=== PATIENT | female | born 1975 | race Hispanic/Latino ===

== ENCOUNTER 2024-06-11 19:38 | Observation (INO) | payer BC ==
[2024-06-11] MEDS ORDERED: Mag-Al 1200 mg/1200 mg/30 ML UDCUP ONE (21:07)
[2024-06-11] MEDS ORDERED: Lidocaine Viscous Sol 2% 15 ml UD Cup ONE (21:07)
[2024-06-11] MEDS ORDERED: Ketorolac Tromethamine 30 MG (1 mL) VIAL ONE (21:07)
[2024-06-11] MEDS ORDERED: Ondansetron PF 4 MG/2 ML Vial ONE (21:07)
[2024-06-11] MEDS ORDERED: Famotidine/PF 20 mg/2ml Vial ONE (21:08)
[2024-06-11 21:46] LABS: #Basophils 0.02 10x3/uL (0.0-0.2); #Eosinophils 0.06 10x3/uL (0.0-0.5); #Monocytes 0.64 10x3/uL (0.0-1.1); #Neutrophils 4.89 10x3/uL (1.5-8.4); %Basophils 0.3 % (0.0-2.0); %Eosinophils 0.8 % (0.0-6.0); %Lymphocytes 24.4 % (18.0-47.0); %Monocytes 8.6 % (0.0-10.0); %Neutrophils 65.8 % (40.0-75.0); Hematocrit 34.2 % (34.9-44.5); Mean Corpuscular HGB CONC 35.1 g/dL (32.0-36.0); Mean Corpuscular Hemoglobin 28.2 pg (27.0-33.0); Mean Corpuscular Volume 80.3 fL (81.6-98.3); Mean Platelet Volume 11.1 fL (7.4-10.4); Platelet Count 208 10x3/uL (150-450); RBC Distribution Width 13.5 % (11.5-14.5); Red Blood Cell (RBC) Count 4.26 10x6/uL (3.90-5.03); White Blood Cell (WBC) Count 7.4 10x3/uL (3.5-10.5)
[2024-06-11 21:49] LABS: Bilirubin Neg (Negative); Blood, Urine Negative (Negative); Clarity Cloudy (Clear); Glucose, Urine (Dipstick) Normal (Negative); Ketone, Urine Negative (Negative); Leukocyte Negative (Negative); Nitrite Negative (Negative); Protein, Urine (Dipstick) 15 mg/dl (Neg-Trace); Urobilinogen Normal mg/dL (Less than 2)
[2024-06-11 22:04] LABS: ALT (SGPT) 32 U/L (8-55); AST (SGOT) 18 U/L (5-34); Albumin 3.8 g/dL (3.5-5.0); Alkaline Phosphatase 116 U/L (40-110); Anion Gap 16 mmol/L (10-20); BUN (Urea Nitrogen) 14 mg/dL (9.8-20.1); Bilirubin, Total 1.1 mg/dL (0.2-1.2); Calc. Creatinine Clearance 0 mL/min (70-130); Calcium 11.3 mg/dL (7.8-10.44); Carbon Dioxide 29 mmol/L (22-29); Chloride 105 mmol/L (98-107); Estimated GFR 111; Globulin 2.7 g/dL (2.4-3.5); Glucose 101 mg/dL (70-105); Lipase 26 U/L (8-78); Magnesium 1.6 mg/dL (1.6-2.6); Potassium 2.9 mmol/L (3.5-5.1); Protein, Total 6.5 g/dL (6.0-8.3); Sodium 147 mmol/L (136-145)
[2024-06-11 22:08] LABS: CAUTI Indications for Culture Pelvic or flank pain; WBC/HPF 0-3 HPF (0-3)
[2024-06-11 22:09] LABS: RBC/HPF 0-3 HPF (0-3); Squamous Epithelial 0-3 HPF (0-3)
[2024-06-11 22:10] LABS: Bacteria/HPF 1+ HPF (None Seen)
[2024-06-11 22:10] LABS: Troponin I 0.015 ng/mL (< 0.028)
[2024-06-11 22:11] LABS: Urine Culture Reflex No No
[2024-06-11] MEDS ORDERED: Potassium Bicarbonate/Cit Ac 20 MEQ TAB ONE ×2 (22:21→22:22)
[2024-06-11] MEDS ORDERED: Zolpidem Tartrate 5 MG TAB PO PRN (23:41)
[2024-06-11] MEDS ORDERED: Senokot S 8.6-50 MG TAB PO PRN (23:41)
[2024-06-11] MEDS ORDERED: Acetaminophen 325 MG TAB PO PRN (23:41)
[2024-06-11] MEDS ORDERED: Ondansetron PF 4 MG/2 ML Vial IVP PRN (23:41)
[2024-06-11 23:49] LABS: Amphetamine Not Detected (NotDetected); Barbiturates Screen Not Detected (NotDetected); Benzodiazepine Screen Not Detected (NotDetected); Cocaine Metabolite Screen Not Detected (NotDetected); Methadone Not Detected (NotDetected); Methamphetamine Not Detected (NotDetected); Opiate Screen Not Detected (NotDetected); Oxycodone Screen Not Detected (NotDetected); Phencyclidine (PCP) Not Detected (NotDetected); THC/Cannabinoid Screen Not Detected (NotDetected); Tricyclic Screen Not Detected (NotDetected)
[2024-06-12 00:54] LABS: Troponin I 0.023 ng/mL (< 0.028)
[2024-06-12 01:00] VITALS: BMI 23.0
[2024-06-12 01:20] LABS: Pregnancy Test - Urine (BHCG) Negative (Negative); Pregu Control Background? CLEAR/WHITE (CLR/WHITE); Pregu Control Bar Appear? YES (CONTROL BAR)
[2024-06-12] MEDS: Lactated Ringer's 500 ML IV SCH (01:24)
[2024-06-12] MEDS: Magnesium 2 GM/50 ML(in water) 2 GM in Premix 1 BAG IVPB SCH (01:27)
[2024-06-12] MEDS: Lactated Ringer's 1,000 ML IV SCH (01:30)
[2024-06-12] MEDS ORDERED: Lactated Ringer's 500 ML IV SCH (01:30)
[2024-06-12] MEDS: Pantoprazole 40 MG VIAL IVP SCH ×2 (01:31→09:27)
[2024-06-12] MEDS: Promethazine HCl 12.5 MG in Sodium Chloride 0.9% 50 ML IVPB SCH (01:32)
[2024-06-12 04:33] LABS: ALT (SGPT) 26 U/L (8-55); AST (SGOT) 16 U/L (5-34); Albumin 3.2 g/dL (3.5-5.0); Alkaline Phosphatase 99 U/L (40-110); Anion Gap 13 mmol/L (10-20); BUN (Urea Nitrogen) 13 mg/dL (9.8-20.1); Calc. Creatinine Clearance 116 mL/min (70-130); Calcium 10.7 mg/dL (7.8-10.44); Carbon Dioxide 28 mmol/L (22-29); Chloride 109 mmol/L (98-107); Estimated GFR 113; Globulin 2.4 g/dL (2.4-3.5); Glucose 88 mg/dL (70-105); Magnesium 2.5 mg/dL (1.6-2.6); Protein, Total 5.6 g/dL (6.0-8.3); Sodium 147 mmol/L (136-145)
[2024-06-12] MEDS: Potassium Chloride 20 MEQ in Premix 1 BAG IVPB SCH (05:41)
[2024-06-12 12:35] LABS: Anion Gap 12 mmol/L (10-20); BUN (Urea Nitrogen) 13 mg/dL (9.8-20.1); Calc. Creatinine Clearance 108 mL/min (70-130); Calcium 11.3 mg/dL (7.8-10.44); Carbon Dioxide 30 mmol/L (22-29); Chloride 110 mmol/L (98-107); Estimated GFR 111; Glucose 103 mg/dL (70-105); Potassium 3.5 mmol/L (3.5-5.1); Sodium 148 mmol/L (136-145)
[2024-06-12] MEDS: Sodium Chloride 0.45% 1,000 ML IV SCH (18:29)
[2024-06-12] MEDS: FLU (Fluarix Triv) TS24-25(6MOS UP)/PF 45 MCG/0.5 ML Syringe IM ONE (18:29)
[2024-06-12 19:29] VITALS: BP 141/89; TEMP 98.7
[2024-06-12] MEDS: Scopolamine 1 mg/72 hour Patch TOP SCH (20:12)
[2024-06-12] MEDS ORDERED: Enoxaparin 40 MG (0.4 mL) SYRINGE SC SCH (21:00)
== END 2024-06-12 21:00 | disposition home or self-care (01) ==
LOC: CSHERS 19:38 → CSHTELE 23:41
PROVIDERS: ADMIT Student in an Organized Health Care Education/Training Program; ATTEND Internal Medicine
DX: K52.9 Noninfective gastroenteritis and colitis, unspecified (principal); E87.6 Hypokalemia; E86.0 Dehydration; R03.0 Elevated blood-pressure reading, without diagnosis of hypertension; Z79.899 Other long term (current) drug therapy
CPT/HCPCS: 36415; 80053; 80306; 81001; 81025; 83605; 83690; 83735; 84484; 85025; 87086; 93005; 96374; 96375; 96376; G0378; J1885; J2405; J2470; J2550; J3475; J3480; J3490; J7120